=== PATIENT | female | born 1990 ===

== ENCOUNTER 2022-07-04 06:35 | Outpatient (CLI) | payer OTHER ==
[2022-07-04] MEDS ORDERED: CEFUROXIME500 MG PO (07:12)
== END 2022-07-04 10:11 | disposition home or self-care (01) ==
LOC: OBS/DEL 06:35
PROVIDERS: ATTEND Student in an Organized Health Care Education/Training Program
DX: O26.893 Other specified pregnancy related conditions, third trimester (principal); Z3A.37 37 weeks gestation of pregnancy; M54.9 Dorsalgia, unspecified

== ENCOUNTER 2022-07-23 17:33 | Inpatient (IN) | payer OTHER ==
[~2022-07-23] VITALS: Ht 152.4 cm; Wt 68.9 kg
[~2022-07-23 17:33] MED LIST: CEFUROXIME500 MG PO
[2022-07-23] MEDS ORDERED: PRENATAL CAPLE1 EAC1 PO (19:34)
[2022-07-27] MEDS ORDERED: Tylenol #3 PO (09:51)
[2022-07-27] MEDS ORDERED: NAPR500T14 PO (09:51)
== END 2022-07-27 13:21 | disposition home or self-care (01) | DRG 788 ==
LOC: LDR 17:33 → OB/GYN 17:33
PROVIDERS: ADMIT Obstetrics & Gynecology; ATTEND Obstetrics & Gynecology
PROC: 4A1HXCZ Monitoring of Products of Conception, Cardiac Rate, External Approach (ICD-10-PCS; 2022-07-23)
PROC: 10D00Z1 Extraction of Products of Conception, Low, Open Approach (ICD-10-PCS; principal; 2022-07-24 18:15)
DX: O82 Encounter for cesarean delivery without indication (principal); O76 Abnormality in fetal heart rate and rhythm complicating labor and delivery; Z3A.40 40 weeks gestation of pregnancy; Z37.0 Single live birth; Z20.822 Contact with and (suspected) exposure to COVID-19